=== PATIENT | female | born 1980 | race Caucasian/White ===

== ENCOUNTER 2021-04-24 21:53 | Emergency (ER) | payer MEDICAID, SELFPAY ==
[2021-04-24 21:53] VITALS: BP 125/55; PULSE 94; RESP 22; TEMP 36.7; O2SAT 100; BMI 22.6
--- NOTE | 2021-04-24 22:08 | EDS_ITS ---
HPI History of Present Illness Chief Complaint: Back Informant: patient Narrative Narrative: Patient presents with lower back pain. Patient has a history of back pain. She has a history of slipped disc. She had MRI many years ago in approximately 2005. 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 She states she has been doing very well. Yesterday, she slipped on the steps. She did not fall to the ground. She had some mild soreness after this. But mostly her pain seemed to increase over the next 2 hours. In the last day and a half she has had about 15 Tylenol. Although this is above the 4 g/day recommended it is well below the 140 mg/kg toxic dose as a single ingestion and it was taken over 24 to 36 hours. She has no bowel or bladder dysfunction. She does have radiation mostly into the right buttock and upper part of the right thigh. It is worse if she stands up it is better if she lays on her right side. There is no weakness. There is no numbness. There is no paresthesias. She has had no recent infections. Only trauma is as above. No history of fevers. No cancer or chemotherapy. She never had back surgery. She has had surgery on left ankle for fracture. No chronic medical conditions. She does have history of occasional back pain. See history of present illness. No current medications Allergy to gabapentin and meloxicam. These cause GI upset only. She can take Motrin. She has no actual allergy but has intolerances. Surgery: Left ankle Lives independently, is a smoker. [facility] Medical History Ankle fracture Herniated disc Home Medications cyclobenzaprine 10 mg PO BID PRN #10 tab 04/24/21 [Rx Last Taken Unknown] naproxen 500 mg PO BID #14 tab 04/24/21 [Rx Last Taken Unknown] tramadol 50 mg PO Q6H 3 Days #12 tab 04/24/21 [Rx Last Taken Unknown] Allergy/AdvReac Type Severity Reaction Status Date / Time gabapentin Allergy Upset Verified 04/24/21 21:59 Stomach latex Allergy Rash Verified 04/24/21 21:59 meloxicam [From Mobic] Allergy Upset Verified 04/24/21 21:59 Stomach Social History Smoking Status: Current every day smoker tobacco type: cigarettes ROS ROS ED Constitutional Constitutional ED: Denies chills or fever(s) ENT ENT ED: Denies rhinorrhea or sore throat Cardiovascular Cardiovascular: Denies chest pain or palpitations Respiratory/Chest Respiratory/Chest: Denies dyspnea, dyspnea on exertion or sputum Gastrointestinal Gastrointestinal: Denies abdominal pain, constipation, diarrhea, nausea or vomiting Genitourinary Genitourinary ED: Denies urinary frequency Musculoskeletal Musculoskeletal: Reports back pain; Denies arthralgias, myalgias or neck pain Integumentary Denies rash Neurologic Neurologic: Denies headache(s), paresthesias or weakness Endocrine Endocrinology: Denies polydipsia or polyuria Hematologic/Lymphatic Hematologic/Lymphatic: Denies easy bleeding or easy bruising Allergic/Immunologic Allergic/Immunologic ED: Denies urticaria EXAM Physical Exam Const Vital Signs: 04/24/21 21:53 Temperature 98.1 F Temperature Source Temporal Pulse Rate 94 Respiratory Rate 22 H Blood Pressure 125/55 H Blood Pressure Mean 78 Pulse Ox 100 Oxygen Delivery Method Room Air Patient is lying on the right side in the bed. Positive well nourished and well developed General Appearance ED: well developed and NAD HEENT Negative for trauma Eyes EOMs intact bilaterally Neck no JVD Resp normal respiratory effort Cardio regular rate and regular rhythm GI normal to inspection, nondistended, normoactive bowel sounds, soft to palpation and non-tender Back/Spine normal to inspection Back/Spine Narrative: Patient has some very low right-sided paraspinal tenderness at the low lumbar area and upper SI area. There is no erythema or skin changes. There is some mild sciatic notch tenderness on the right buttock but none on the left. She has excellent and equal 2+ patellar and Achilles reflexes bilaterally. Her quad strength is normal. She can pull feet and toes up and down without difficulty or weakness no gross sensory deficit. Extremity normal to inspection Extremity Narrative: Well-healed scar on left lateral ankle from prior surgery General Extremety ED: Negative for edema or tenderness General Extremity: Negative for edema Neuro no sensory deficits noted Sensorium / Orientation: alert Motor Exam: strength 5/5 throughout Psych mental status grossly normal Skin no rashes or lesions noted and no wounds Trauma: Negative for abrasion MDM MDM MDM Narrative Medical decision making narrative: Patient has acute myofascial strain in the lower back. She was doing okay today but then put heat on it and seem to get worse. I think a large component of her discomfort is spasm. Although she slipped she never fell to the ground and did not have immediate pain. Her soreness developed over the first 2 hours after this. I do not think x-rays will make a difference. She has no red flags of back pain. We will treat her with medicines here and to go. Of note, I was unable to get the prescription monitoring program to connect to evaluate her med history. By her report, she has not been on any meds for some years. We also had a discussion about appropriate dosing of Tylenol. Discharge Plan Triage Chief Complaint: Back ED Provider: Raulito Ac Dx/Rx/DC Orders Clinical Impression: Acute lumbar back pain Instructions: ED Back Sprain/Strain Prescriptions: New cyclobenzaprine 10 mg tablet 10 mg PO BID PRN (Reason: muscle spasm) Qty: 10 RF: 0 naproxen 500 MG tablet 500 mg PO BID Qty: 14 RF: 0 tramadol 50 mg tablet 50 mg PO Q6H 3 Days Qty: 12 RF: 0 Primary Care Provider: Bakari Carr Referrals: Bakari Carr MD [Primary Care Provider] - 3-5 Days if not improving Disposition Disposition: Home, Self Care
[2021-04-24] MEDS: Ketorolac 60 MG/2 ML Vial IM (22:31)
[2021-04-24] MEDS: Lidocaine 5% Patch 1 PATCH TOPICAL (22:32)
[2021-04-24] MEDS: Orphenadrine 60 MG/2 ML Ampul IM (22:32)
[2021-04-24] MEDS: Morphine 4 MG/ML Syringe IM (22:32)
[2021-04-24 23:18] VITALS: BP 142/62; PULSE 98; RESP 14; TEMP 36.3; O2SAT 97
== END 2021-04-24 23:21 | disposition home or self-care (01) ==
PROVIDERS: Emergency Provider Emergency Medicine; PCP Family Medicine
DX: M54.50 Low back pain, unspecified (principal); F17.210 Nicotine dependence, cigarettes, uncomplicated
CPT/HCPCS: 96372; 99283

== ENCOUNTER 2022-03-19 14:28 | Emergency (ER) | payer MEDICAID, SELFPAY ==
[2022-03-19 14:28] VITALS: BP 113/84; PULSE 85; RESP 16; TEMP 36.8; O2SAT 98; BMI 24.0
--- NOTE | 2022-03-19 14:51 | EX.ED.DYSGE1 ---
HPI History of Present Illness Chief Complaint: Lower Extremity Injury Informant: patient Narrative Narrative: 41-year-old female states that she was cleaning up a very old home and its been abandoned for years. There is a board that was flipped over that had a nail sticking out of it. Her soles of her shoes were very thin and the nail went through the shoe and sock and caused a plantar puncture on the right ball of the foot. She notes soreness. She states that she squeezed it and washed it at the scene. She notes her last tetanus shot was in 2017. [facility] Medical History Ankle fracture Herniated disc Home Medications cyclobenzaprine 10 mg tablet 10 mg PO BID PRN muscle spasm #10 tabs 04/24/21 [Rx Last Taken Unknown] naproxen 500 mg tablet 500 mg PO BID #14 tabs 04/24/21 [Rx Last Taken Unknown] tramadol 50 mg tablet 50 mg PO Q6H 3 days #12 tabs 04/24/21 [Rx Last Taken Unknown] cephalexin 500 mg capsule 500 mg PO Q6 #28 CAPSULES 03/19/22 [Rx Last Taken Unknown] Allergy/AdvReac Type Severity Reaction Status Date / Time gabapentin Allergy Upset Verified 03/19/22 14:28 Stomach latex Allergy Rash Verified 03/19/22 14:28 meloxicam [From Mobic] Allergy Upset Verified 03/19/22 14:28 Stomach Social History (Updated 03/19/22 @ 14:[address] Jame Grigsby DO) current gender identity: female Smoking Status: Current every day smoker tobacco type: cigarettes ROS ROS ED Constitutional Constitutional ED: Denies chills or weight loss Eyes Eyes: Denies change in vision or diplopia ENT ENT ED: Denies ear pain, rhinorrhea or sore throat Cardiovascular Cardiovascular: Denies chest pain, orthopnea, palpitations or racing heartbeat Respiratory/Chest Respiratory/Chest: Denies cough, dyspnea or orthopnea Gastrointestinal Gastrointestinal: Denies abdominal pain, diarrhea, nausea or vomiting Genitourinary Genitourinary ED: Denies dysuria, hematuria or urinary frequency Musculoskeletal Musculoskeletal: Reports other Details: See history of present illness ; Denies arthralgias or myalgias Integumentary Denies abscess or rash Neurologic Neurologic: Denies headache(s) or weakness Psychiatric Psychiatric: Denies anxiety, depression, suicidal ideation or suicidal thoughts Endocrine Endocrinology: Denies polydipsia, polyphagia or polyuria Allergic/Immunologic Allergic/Immunologic ED: Denies mouth swelling, tongue swelling or urticaria EXAM Physical Exam Const Vital Signs: 03/19/22 14:28 Temperature 98.3 F Temperature Source Temporal Pulse Rate 85 Respiratory Rate 16 Blood Pressure 113/84 H Blood Pressure Mean 93 Pulse Ox 98 Oxygen Delivery Method Room Air Positive well nourished and well developed General Appearance ED: well developed HEENT Reports normocephalic, head/scalp atraumatic and moist mucous membranes Eyes PERRL and EOMs intact bilaterally Neck no lymphadenopathy, supple and no JVD Resp normal respiratory effort and clear to auscultation bilaterally Cardio regular rate, regular rhythm and no murmurs GI normal to inspection, nondistended, normoactive bowel sounds and non-tender Palpation: soft Back/Spine no CVA tenderness and normal ROM Extremity Extremity Narrative: There is a plantar puncture wound near the distal edge of the first/second metatarsal. There is no surrounding erythema or significant swelling. No deformities. General Extremety ED: Negative for edema General Extremity: Negative for edema Neuro oriented x3 and CN's II-XII intact bilaterally Sensorium / Orientation: alert Motor Exam: strength 5/5 throughout Psych mental status grossly normal Mood & Affect: Negative for depressed or tearful Skin no rashes or lesions noted and no wounds MDM MDM MDM Narrative Medical decision making narrative: Potation of the plain films of the right foot is no obvious metallic foreign body noted. There is no gas in the tissues. Clinically she does not have an infection as the injury just happened. We will place her on prophylactic Keflex. We talked about return instructions and she notes understanding. Her tetanus is up-to-date. Local wound care at home. Discharge Plan Triage Chief Complaint: Lower Extremity Injury ED Provider: Jame Grigsby Dx/Rx/DC Orders Clinical Impression: Puncture wound of plantar aspect of foot Instructions: ED Puncture Wound (Foot) Prescriptions: New cephalexin [cephalexin] 500 mg capsule 500 mg PO Q6 Qty: 28 0RF No Action cyclobenzaprine 10 mg tablet 10 mg PO BID PRN (Reason: muscle spasm) Qty: 10 0RF naproxen 500 MG tablet 500 mg PO BID Qty: 14 0RF tramadol 50 mg tablet 50 mg PO Q6H 3 Days Qty: 12 0RF Primary Care Provider: Bakari Carr Referrals: Bakari Carr MD [Primary Care Provider] - Disposition Disposition: Home, Self Care
--- NOTE | 2022-03-19 14:58 | RAD_ITS ---
INDICATION: punture wound EXAMINATION/TECHNIQUE: X-RAY - RIGHT XR Foot Min 3 Views 3 VIEWS COMPARISON: None. FINDINGS: SOFT TISSUES: No abnormal density visualized in the soft tissues. No radiopaque foreign body. BONES/JOINTS: No acute fracture or subluxation.. Normal alignment. Preservation of the joint space.. No sclerotic or destructive changes observed. RAD/Foot min 3 Views IMPRESSION: No radiopaque foreign body, no abnormal density seen in the soft tissues. Electronically Signed: Shine Bustillos MD at 15:25 EDT ,
[2022-03-19] MEDS: Cephalexin 250 MG Capsule 500 MG PO (15:03)
[2022-03-19] MEDS: Ibuprofen 400 MG Tablet 800 MG PO (15:03)
== END 2022-03-19 15:24 | disposition home or self-care (01) ==
PROVIDERS: Emergency Provider Emergency Medicine; PCP Family Medicine; Visit Provider Emergency Medicine
DX: S91.331A Puncture wound without foreign body, right foot, initial encounter (principal); F17.210 Nicotine dependence, cigarettes, uncomplicated; W22.8XXA Striking against or struck by other objects, initial encounter
CPT/HCPCS: 73630; 99283